=== PATIENT | male | born 1970 | race Caucasian/White ===

== ENCOUNTER 2017-01-15 18:17 | Emergency (ER) | payer OTHER ==
[2017-01-15 18:22] VITALS: BP 123/91; PULSE 77; RESP 16; TEMP 98.2; O2SAT 99
--- NOTE | 2017-01-15 18:50 | EDPHY ---
H & P Smoking Status: Former smoker Time Seen by Provider: 01/15/17 18:26 HPI/ROS: CHIEF COMPLAINT: "Cyst on buttock " HISTORY OF PRESENT ILLNESS: 46-year-old immunocompetent male with prior history of pilonidal abscess pre treated in [place], recently moved to this area complaining of 4 days of progressive swelling, enlargement, tenderness at same location. No fever no chills no nausea no vomiting. No pain with defecation. PRIMARY CARE PROVIDER: REVIEW OF SYSTEMS: A ten point review of systems was performed and is negative with the exception of the items mentioned in the HPI PHYSICAL EXAM (Prior to examination, patient consented to physical exam, hands were washed and my usual and customary physical exam procedures followed) 1) GENERAL: Well-developed, well-nourished, alert and oriented. Appears to be in no acute distress. 2) HEAD: Normocephalic 3) HEENT: sclera anicteric 4) LUNGS: Breathing comfortably. 5) SKIN: Cleft of the patient's buttock he has tender, fluctuant 3 cm x 1.5 cm area with no drainage. No crepitus. No extension to the perianal region. (Shannen Holt Day) Constitutional: Initial Vital Signs Temperature (C) 36.8 C 01/15/17 18:17 Heart Rate 77 01/15/17 18:17 Respiratory Rate 16 01/15/17 18:17 Blood Pressure 123/91 H 01/15/17 18:17 O2 Sat (%) 99 01/15/17 18:17 O2 Delivery Mode Room Air Allergies/Adverse Reactions: Sulfa (Sulfonamide Antibiotics) Allergy (Verified 01/15/17 18:22) as child Home Medications: Medication Instructions Recorded Cephalexin [Keflex] 500 mg PO TID 10 Days cap 01/15/17 Minocycline HCl [Minocin 50 mg (*)] 50 mg PO 01/15/17 Nortriptyline HCl [Pamelor 10 mg 10 mg PO 01/15/17 (*)] SUMAtriptan [Imitrex 25 MG (*)] 25 mg PO 01/15/17 oxyCODONE/APAP 5/325 [Percocet 1 tab PO Q6 #10 tab 01/15/17 5/325] MDM/Departure - MDM Procedures: Procedure: Abscess drainage. The patient's abscess was located on the cleft of buttock. I obtained verbal consent from the patient to drain the abscess who was informed about the possibility of bleeding and pain. The abscess was incised with #11 Scalpel and a moderate amount of purulent drainage was expressed. I irrigated the wound and placed some packing. The patient tolerated the procedure well. The procedure was performed by myself. (Shannen Holt) ED Course/Re-evaluation: PHYSICIAN DOCUMENTATION: The patient was evaluated and managed by the Physician Plant Pathologist. My co- signature indicates that I have reviewed this chart and I agree with the findings and plan of care as documented. I am the secondary supervising physician. (Idris Salazar) - Depart Disposition: Home, Routine, Self-Care Clinical Impression: Abscess of buttock, left Condition: Good Instructions: Abscess (ED) Prescriptions: Cephalexin [Keflex] 500 mg PO TID 10 Days cap oxyCODONE/APAP 5/325 [Percocet 5/325] 1 tab PO Q6 #10 tab Referrals: Luke Johnston MD [Medical Doctor] - 2-3 days, call for appt.
== END 2017-01-15 19:14 | disposition home or self-care (01) ==
PROC: 0H98XZZ Drainage of Buttock Skin, External Approach (ICD-10-PCS; principal; 2017-01-15)
DX: L02.31 Cutaneous abscess of buttock (principal); Z87.891 Personal history of nicotine dependence